=== PATIENT | male | born 1965 | race Caucasian/White ===

== ENCOUNTER 2018-01-01 19:32 | Inpatient (IN) | payer OTHER ==
[2018-01-01] MEDS ORDERED: ACETAMINOPHEN 325 MG TAB PO (21:00)
[2018-01-01] MEDS ORDERED: DOCUSATE SODIUM 100 MG CAP PO (21:00)
[2018-01-01] MEDS ORDERED: NACL 0.9% 3 ML SYG IV (21:00)
[2018-01-01] MEDS ORDERED: BISACODYL (EC) 5 MG TAB PO (21:00)
[2018-01-01] MEDS ORDERED: ALBUTEROL 0.083% (NEB) 2.5 MG/3 ML AMP HHN (21:00)
[2018-01-01] MEDS ORDERED: ONDANSETRON 4 MG INJ IV (21:00)
[2018-01-01 21:48] LABS: ADD MAN DIFF? NO
[2018-01-01 21:53] LABS: WHITE BLOOD COUNT 7.7 10^3/ul (4.8-10.8)
[2018-01-01 21:54] LABS: ABNORMAL IP MESSAGE 1; BASOPHILS % 0.1 % (0.0-2.0); HEMATOCRIT 39.8 % (42.0-52.0); HEMOGLOBIN 12.7 g/dl (14.0-18.0); LYMPHOCYTES # 0.2 10^3/ul (0.8-2.9); LYMPHOCYTES % 2.6 % (15.0-51.0); MEAN CORPUSCULAR HEMOGLOBIN 30.6 pg (29.0-33.0); MEAN CORPUSCULAR HGB CONC 31.9 g/dl (32.0-37.0); MEAN CORPUSCULAR VOLUME 95.9 fl (82.0-101.0); MEAN PLATELET VOLUME 10.7 fl (7.4-10.4); MONOCYTE # 0.2 10^3/ul (0.3-0.9); MONOCYTES % 2.9 % (0.0-11.0); NEUTROPHIL # 7.2 10^3/ul (1.6-7.5); NEUTROPHILS % 94.1 % (39.0-77.0); PLATELET COUNT 181 10^3/UL (140-415); POSITIVE DIFF @See below; RED BLOOD COUNT 4.15 10^6/ul (4.70-6.10); RED CELL DISTRIBUTION WIDTH 14.6 % (11.5-14.5)
[2018-01-01] MEDS: ALBUTEROL/IPRATROPIUM (NEB) 3 ML AMP HHN (21:59)
[2018-01-01 22:04] LABS: HEMOGLOBIN A1C 5.5 % (0-5.9)
[2018-01-01] MEDS: predniSONE 20 MG TAB PO (22:04)
[2018-01-01] MEDS: ENOXAPARIN 40 MG/0.4 ML SYG SC (22:08)
[2018-01-01 22:13] LABS: ALANINE AMINOTRANSFERASE 22 IU/L (13-69); ALBUMIN 4.4 g/dl (3.3-4.9); ALBUMIN/GLOBULIN RATIO 1.41; ALKALINE PHOSPHATASE 69 IU/L (42-121); ANION GAP 9 (5-13); ASPARTATE AMINO TRANSFERASE 27 IU/L (15-46); BILIRUBIN,INDIRECT 0.5 mg/dl (0-1.1); BILIRUBIN,TOTAL 0.5 mg/dl (0.2-1.3); BLOOD UREA NITROGEN 31 mg/dl (7-20); CALCIUM 9.2 mg/dl (8.4-10.2); CARBON DIOXIDE 33 mmol/L (21-31); CHLORIDE 97 mmol/L (97-110); CREATININE 1.37 mg/dl (0.61-1.24); Estimated GFR 54 mL/min (>60); GLUCOSE 185 mg/dl (70-220); MAGNESIUM 2.4 mg/dl (1.7-2.5); POTASSIUM 4.8 mmol/L (3.5-5.1); SODIUM 139 mmol/L (135-144); TOTAL PROTEIN 7.5 g/dl (6.1-8.1)
[2018-01-01 22:42] LABS: THYROID STIMULATING HORMONE 0.358 MIU/L (0.465-4.680)
[2018-01-02] MEDS: THIAMINE 200 MG INJ IM ×2 (01:00→10:34)
[2018-01-02] MEDS ORDERED: LORAZEPAM 2 MG INJ IV (01:00)
[2018-01-02 01:52] LABS: CREATINE KINASE 61 IU/L (23-200)
[2018-01-02 01:58] LABS: ETHANOL < 10.0 mg/dl
[2018-01-02 02:05] LABS: CK INDEX 5.4; CK-MB 3.28 ng/ml (0.0-2.4)
[2018-01-02] MEDS: ALBUTEROL/IPRATROPIUM (NEB) 3 ML AMP HHN ×6 (05:23→20:21)
[2018-01-02 05:57] LABS: ADD MAN DIFF? NO
[2018-01-02 06:01] LABS: ABNORMAL IP MESSAGE 1; BASOPHILS % 0.1 % (0.0-2.0); HEMATOCRIT 40.4 % (42.0-52.0); HEMOGLOBIN 12.6 g/dl (14.0-18.0); LYMPHOCYTES # 0.3 10^3/ul (0.8-2.9); LYMPHOCYTES % 2.7 % (15.0-51.0); MEAN CORPUSCULAR HEMOGLOBIN 30.6 pg (29.0-33.0); MEAN CORPUSCULAR HGB CONC 31.2 g/dl (32.0-37.0); MEAN CORPUSCULAR VOLUME 98.1 fl (82.0-101.0); MEAN PLATELET VOLUME 11.2 fl (7.4-10.4); MONOCYTE # 0.6 10^3/ul (0.3-0.9); MONOCYTES % 5.9 % (0.0-11.0); NEUTROPHILS % 91.1 % (39.0-77.0); PLATELET COUNT 170 10^3/UL (140-415); POSITIVE DIFF @See below; RED BLOOD COUNT 4.12 10^6/ul (4.70-6.10); RED CELL DISTRIBUTION WIDTH 14.7 % (11.5-14.5)
[2018-01-02 06:01] LABS: WHITE BLOOD COUNT 9.9 10^3/ul (4.8-10.8)
[2018-01-02] MEDS: PANTOPRAZOLE (EC) 40 MG TAB PO (06:07)
[2018-01-02 06:30] LABS: ALANINE AMINOTRANSFERASE 11 IU/L (13-69); ALBUMIN 4.2 g/dl (3.3-4.9); ALKALINE PHOSPHATASE 71 IU/L (42-121); ANION GAP 12 (5-13); ASPARTATE AMINO TRANSFERASE 31 IU/L (15-46); BILIRUBIN,INDIRECT 0.3 mg/dl (0-1.1); BILIRUBIN,TOTAL 0.3 mg/dl (0.2-1.3); BLOOD UREA NITROGEN 34 mg/dl (7-20); CALCIUM 9.1 mg/dl (8.4-10.2); CARBON DIOXIDE 29 mmol/L (21-31); CHLORIDE 99 mmol/L (97-110); CREATININE 1.25 mg/dl (0.61-1.24); Estimated GFR > 60 mL/min (>60); GLUCOSE 218 mg/dl (70-220); POTASSIUM 4.8 mmol/L (3.5-5.1); SODIUM 140 mmol/L (135-144); TOTAL PROTEIN 7.2 g/dl (6.1-8.1)
[2018-01-02 06:45] LABS: FREE T4 (FREE THYROXINE) 0.89 ng/dl (0.64-1.79)
[2018-01-02 06:46] LABS: FREE T3 2.35 pg/ml (2.77-5.27)
[2018-01-02] MEDS: METHYLPREDNISOLONE 40 MG INJ IV ×2 (10:33→21:18)
[2018-01-02] MEDS: ENOXAPARIN 40 MG/0.4 ML SYG SC (10:59)
[2018-01-02] MEDS: AZITHROMYCIN 250 MG TAB PO (13:22)
[2018-01-02 16:32] LABS: BARBITURATES Negative (NEGATIVE); BENZODIAZEPINES Negative (NEGATIVE); CANNABINOIDS Negative (NEGATIVE); COCAINE Negative (NEGATIVE); OPIATES Negative (NEGATIVE)
[2018-01-02 16:33] LABS: AMPHETAMINE/METHAMPHETAMINE Positive (NEGATIVE)
[2018-01-03] MEDS: ALBUTEROL/IPRATROPIUM (NEB) 3 ML AMP HHN ×6 (01:31→20:46)
[2018-01-03] MEDS: PANTOPRAZOLE (EC) 40 MG TAB PO (06:32)
[2018-01-03] MEDS: AZITHROMYCIN 250 MG TAB PO (09:34)
[2018-01-03] MEDS: METHYLPREDNISOLONE 40 MG INJ IV ×2 (09:34→21:52)
[2018-01-03] MEDS: ENOXAPARIN 40 MG/0.4 ML SYG SC (09:41)
[2018-01-03] MEDS: THIAMINE 200 MG INJ IM (12:40)
[2018-01-04] MEDS: ALBUTEROL/IPRATROPIUM (NEB) 3 ML AMP HHN ×5 (00:33→16:20)
[2018-01-04] MEDS: PANTOPRAZOLE (EC) 40 MG TAB PO (06:18)
[2018-01-04] MEDS: METHYLPREDNISOLONE 40 MG INJ IV (08:25)
[2018-01-04] MEDS: AZITHROMYCIN 250 MG TAB PO (08:25)
[2018-01-04] MEDS: ENOXAPARIN 40 MG/0.4 ML SYG SC (08:30)
[2018-01-04] MEDS: THIAMINE 200 MG INJ IM (11:52)
== END 2018-01-04 18:45 | disposition home or self-care (01) | DRG 191 ==
LOC: 6WM 19:32
PROVIDERS: Family Medicine
PROC: 3E0F7GC Introduction of Other Therapeutic Substance into Respiratory Tract, Via Natural or Artificial Opening (ICD-10-PCS; principal; 2018-01-01)
DX: J44.1 Chronic obstructive pulmonary disease with (acute) exacerbation (principal); I13.0 Hypertensive heart and chronic kidney disease with heart failure and stage 1 through stage 4 chronic kidney disease, or unspecified chronic kidney disease; I50.42 Chronic combined systolic (congestive) and diastolic (congestive) heart failure; N17.9 Acute kidney failure, unspecified; Z68.41 Body mass index [BMI] 40.0-44.9, adult; N18.9 Chronic kidney disease, unspecified; E66.01 Morbid (severe) obesity due to excess calories; Z59.0 Homelessness; Z72.0 Tobacco use; F10.10 Alcohol abuse, uncomplicated
CPT/HCPCS: 80053; 80307; 82550; 82553; 83036; 83735; 84439; 84443; 84481; 84484; 85025; 93306; 94640; 94664

== ENCOUNTER 2018-01-19 18:12 | Emergency (ER) | payer OTHER ==
[2018-01-19] MEDS: ONDANSETRON (ODT) 4 MG TAB ODT (18:35)
[2018-01-19] MEDS: HYDROCODONE/APAP (10/325) TAB PO (18:35)
[2018-01-19] MEDS: SOD CHLORIDE 0.9% 100 ML (22:51)
[2018-01-19] MEDS: IOHEXOL 300MG/ML 30 ML BTL (22:52)
[2018-01-19] MEDS: SOD CHLORIDE 0.9% 1,000 ML IV (22:54)
[2018-01-19 22:58] LABS: ADD MAN DIFF? NO
[2018-01-19 23:01] LABS: WHITE BLOOD COUNT 6.4 10^3/ul (4.8-10.8)
[2018-01-19 23:01] LABS: BASOPHILS % 0.6 % (0.0-2.0); EOSINOPHILS # 0.1 10^3/ul (0.0-0.5); EOSINOPHILS % 0.9 % (0.0-7.0); HEMATOCRIT 38.3 % (42.0-52.0); HEMOGLOBIN 11.8 g/dl (14.0-18.0); LYMPHOCYTES # 0.7 10^3/ul (0.8-2.9); LYMPHOCYTES % 10.6 % (15.0-51.0); MEAN CORPUSCULAR HEMOGLOBIN 30.4 pg (29.0-33.0); MEAN CORPUSCULAR HGB CONC 30.8 g/dl (32.0-37.0); MEAN CORPUSCULAR VOLUME 98.7 fl (82.0-101.0); MEAN PLATELET VOLUME 10.7 fl (7.4-10.4); MONOCYTE # 0.7 10^3/ul (0.3-0.9); MONOCYTES % 10.6 % (0.0-11.0); NEUTROPHIL # 4.9 10^3/ul (1.6-7.5); NEUTROPHILS % 77.1 % (39.0-77.0); PLATELET COUNT 128 10^3/UL (140-415); RED BLOOD COUNT 3.88 10^6/ul (4.70-6.10); RED CELL DISTRIBUTION WIDTH 14.4 % (11.5-14.5)
[2018-01-19 23:19] LABS: ALANINE AMINOTRANSFERASE 46 IU/L (13-69); ALBUMIN 3.5 g/dl (3.3-4.9); ALBUMIN/GLOBULIN RATIO 1.52; ALKALINE PHOSPHATASE 65 IU/L (42-121); ANION GAP 7 (5-13); ASPARTATE AMINO TRANSFERASE 49 IU/L (15-46); BILIRUBIN,INDIRECT 0.6 mg/dl (0-1.1); BILIRUBIN,TOTAL 0.6 mg/dl (0.2-1.3); BLOOD UREA NITROGEN 24 mg/dl (7-20); CALCIUM 8.5 mg/dl (8.4-10.2); CARBON DIOXIDE 29 mmol/L (21-31); CHLORIDE 107 mmol/L (97-110); CREATININE 0.87 mg/dl (0.61-1.24); Estimated GFR > 60 mL/min (>60); GLUCOSE 107 mg/dl (70-220); LIPASE 69 U/L (23-300); POTASSIUM 4.3 mmol/L (3.5-5.1); SODIUM 143 mmol/L (135-144); TOTAL PROTEIN 5.8 g/dl (6.1-8.1)
== END 2018-01-20 01:59 | disposition home or self-care (01) ==
LOC: E/R 01-20 01:59
DX: S90.411A Abrasion, right great toe, initial encounter (principal); J44.9 Chronic obstructive pulmonary disease, unspecified; I11.0 Hypertensive heart disease with heart failure; I50.9 Heart failure, unspecified; V03.10XA Pedestrian on foot injured in collision with car, pick-up truck or van in traffic accident, initial encounter; Z87.891 Personal history of nicotine dependence
CPT/HCPCS: 73550; 73590; 73630; 74176; 74177; 80053; 83690; 85025; 99285-25

== ENCOUNTER 2018-01-20 02:58 | Emergency (ER) | payer OTHER ==
[2018-01-20] MEDS: HYDROCODONE/APAP (5/325) TAB PO (10:13)
== END 2018-01-20 11:21 | disposition home or self-care (01) ==
LOC: E/R 02:58
DX: R10.9 Unspecified abdominal pain (principal); I11.0 Hypertensive heart disease with heart failure; I50.9 Heart failure, unspecified; J44.9 Chronic obstructive pulmonary disease, unspecified; Z87.891 Personal history of nicotine dependence
CPT/HCPCS: 73562; 74176; 99284-25

== ENCOUNTER 2018-07-13 13:17 | Inpatient (IN) | payer OTHER ==
[2018-07-13] MEDS ORDERED: DOCUSATE SODIUM 100 MG CAP PO (14:30)
[2018-07-13] MEDS ORDERED: ONDANSETRON 4 MG INJ IV (14:30)
[2018-07-13] MEDS ORDERED: MAGNESIUM HYDROXIDE 30ML CUP PO (14:30)
[2018-07-13] MEDS ORDERED: NACL 0.9% 3 ML SYG IV (14:30)
[2018-07-13] MEDS ORDERED: ALBUTEROL 0.083% (NEB) 2.5 MG/3 ML AMP HHN (14:30)
[2018-07-13] MEDS ORDERED: ACETAMINOPHEN 325 MG TAB PO (14:30)
[2018-07-13] MEDS ORDERED: LORAZEPAM 2 MG INJ IV (15:00)
[2018-07-13] MEDS: FUROSEMIDE 40 MG INJ IV (17:08)
[2018-07-13] MEDS: FUROSEMIDE 20 MG TAB PO (17:09)
[2018-07-13] MEDS: FAMOTIDINE 20 MG TAB PO (20:58)
[2018-07-13] MEDS: ATENOLOL 50 MG TAB PO (20:58)
[2018-07-13] MEDS: ALBUTEROL 0.083% (NEB) 2.5 MG/3 ML AMP HHN (21:24)
[2018-07-14] MEDS: FUROSEMIDE 20 MG TAB PO ×2 (06:30→17:34)
[2018-07-14 06:47] LABS: ADD MAN DIFF? NO
[2018-07-14 06:54] LABS: BASOPHILS % 0.2 % (0.0-2.0); HEMATOCRIT 36.5 % (42.0-52.0); HEMOGLOBIN 11.8 g/dl (14.0-18.0); LYMPHOCYTES # 0.6 10^3/ul (0.8-2.9); LYMPHOCYTES % 10.6 % (15.0-51.0); MEAN CORPUSCULAR HEMOGLOBIN 29.7 pg (29.0-33.0); MEAN CORPUSCULAR HGB CONC 32.3 g/dl (32.0-37.0); MEAN CORPUSCULAR VOLUME 91.9 fl (82.0-101.0); MEAN PLATELET VOLUME 11.8 fl (7.4-10.4); MONOCYTE # 0.7 10^3/ul (0.3-0.9); MONOCYTES % 11.6 % (0.0-11.0); NEUTROPHIL # 4.7 10^3/ul (1.6-7.5); NEUTROPHILS % 77.4 % (39.0-77.0); PLATELET COUNT 133 10^3/UL (140-415); POSITIVE DIFF @See below; RED BLOOD COUNT 3.97 10^6/ul (4.70-6.10); RED CELL DISTRIBUTION WIDTH 14.2 % (11.5-14.5)
[2018-07-14 07:11] LABS: HEMOGLOBIN A1C 5.9 % (0-5.9)
[2018-07-14 07:18] LABS: ALANINE AMINOTRANSFERASE 26 IU/L (13-69); ALBUMIN 3.3 g/dl (3.3-4.9); ALBUMIN/GLOBULIN RATIO 0.91; ALKALINE PHOSPHATASE 66 IU/L (42-121); ANION GAP 5 (5-13); ASPARTATE AMINO TRANSFERASE 26 IU/L (15-46); BILIRUBIN,INDIRECT 0.4 mg/dl (0-1.1); BILIRUBIN,TOTAL 0.4 mg/dl (0.2-1.3); BLOOD UREA NITROGEN 35 mg/dl (7-20); CALCIUM 8.8 mg/dl (8.4-10.2); CARBON DIOXIDE 34 mmol/L (21-31); CHLORIDE 102 mmol/L (97-110); CREATININE 0.88 mg/dl (0.61-1.24); Estimated GFR > 60 mL/min (>60); GLUCOSE 156 mg/dl (70-220); MAGNESIUM 1.8 mg/dl (1.7-2.5); POTASSIUM 3.8 mmol/L (3.5-5.1); SODIUM 141 mmol/L (135-144); TOTAL PROTEIN 6.9 g/dl (6.1-8.1)
[2018-07-14] MEDS: ALBUTEROL 0.083% (NEB) 2.5 MG/3 ML AMP HHN ×3 (08:20→21:03)
[2018-07-14] MEDS: ASPIRIN 81 MG TAB PO (09:54)
[2018-07-14] MEDS: TIOTROPIUM 18 MCG CAPSULE INHA DEV INH (09:54)
[2018-07-14] MEDS: FAMOTIDINE 20 MG TAB PO ×2 (09:54→20:50)
[2018-07-14] MEDS: ATENOLOL 50 MG TAB PO ×2 (09:57→20:50)
[2018-07-14] MEDS: ENOXAPARIN 40 MG/0.4 ML SYG SC (10:07)
[2018-07-14] MEDS: FLUTICASONE/VILANTEROL 200-25 INH DEVICE INH (10:10)
[2018-07-15] MEDS: FUROSEMIDE 20 MG TAB PO (06:26)
[2018-07-15 07:31] LABS: ADD MAN DIFF? NO
[2018-07-15 07:34] LABS: WHITE BLOOD COUNT 4.6 10^3/ul (4.8-10.8)
[2018-07-15 07:35] LABS: BASOPHILS % 0.9 % (0.0-2.0); EOSINOPHILS # 0.1 10^3/ul (0.0-0.5); HEMATOCRIT 40.7 % (42.0-52.0); HEMOGLOBIN 12.5 g/dl (14.0-18.0); LYMPHOCYTES # 1.5 10^3/ul (0.8-2.9); LYMPHOCYTES % 31.5 % (15.0-51.0); MEAN CORPUSCULAR HEMOGLOBIN 29.3 pg (29.0-33.0); MEAN CORPUSCULAR HGB CONC 30.7 g/dl (32.0-37.0); MEAN CORPUSCULAR VOLUME 95.3 fl (82.0-101.0); MEAN PLATELET VOLUME 11.7 fl (7.4-10.4); MONOCYTE # 0.7 10^3/ul (0.3-0.9); MONOCYTES % 14.8 % (0.0-11.0); NEUTROPHIL # 2.3 10^3/ul (1.6-7.5); NEUTROPHILS % 50.6 % (39.0-77.0); PLATELET COUNT 171 10^3/UL (140-415); RED BLOOD COUNT 4.27 10^6/ul (4.70-6.10); RED CELL DISTRIBUTION WIDTH 14.5 % (11.5-14.5)
[2018-07-15 07:56] LABS: ALBUMIN 3.8 g/dl (3.3-4.9); ANION GAP 7 (5-13); BLOOD UREA NITROGEN 52 mg/dl (7-20); CALCIUM 8.9 mg/dl (8.4-10.2); CARBON DIOXIDE 34 mmol/L (21-31); CHLORIDE 100 mmol/L (97-110); CREATININE 1.41 mg/dl (0.61-1.24); GLUCOSE 95 mg/dl (70-220); MAGNESIUM 1.7 mg/dl (1.7-2.5); PHOSPHORUS 4.7 mg/dl (2.5-4.9); POTASSIUM 4.3 mmol/L (3.5-5.1); SODIUM 141 mmol/L (135-144)
[2018-07-15] MEDS: ALBUTEROL 0.083% (NEB) 2.5 MG/3 ML AMP HHN ×3 (08:00→19:54)
[2018-07-15] MEDS: FLUTICASONE/VILANTEROL 200-25 INH DEVICE INH ×2 (09:00→14:01)
[2018-07-15] MEDS: ATENOLOL 50 MG TAB PO (09:03)
[2018-07-15] MEDS: FAMOTIDINE 20 MG TAB PO ×2 (09:03→21:16)
[2018-07-15] MEDS: TIOTROPIUM 18 MCG CAPSULE INHA DEV INH (09:03)
[2018-07-15] MEDS: ASPIRIN 81 MG TAB PO (09:03)
[2018-07-15] MEDS: ENOXAPARIN 40 MG/0.4 ML SYG SC (09:09)
[2018-07-16 06:20] LABS: ADD MAN DIFF? NO
[2018-07-16 06:27] LABS: WHITE BLOOD COUNT 3.1 10^3/ul (4.8-10.8)
[2018-07-16 06:27] LABS: EOSINOPHILS # 0.1 10^3/ul (0.0-0.5); EOSINOPHILS % 2.9 % (0.0-7.0); HEMATOCRIT 39.3 % (42.0-52.0); HEMOGLOBIN 12.5 g/dl (14.0-18.0); LYMPHOCYTES # 0.9 10^3/ul (0.8-2.9); LYMPHOCYTES % 28.7 % (15.0-51.0); MEAN CORPUSCULAR HEMOGLOBIN 29.6 pg (29.0-33.0); MEAN CORPUSCULAR HGB CONC 31.8 g/dl (32.0-37.0); MEAN CORPUSCULAR VOLUME 92.9 fl (82.0-101.0); MEAN PLATELET VOLUME 11.1 fl (7.4-10.4); MONOCYTE # 0.5 10^3/ul (0.3-0.9); MONOCYTES % 16.8 % (0.0-11.0); NEUTROPHIL # 1.6 10^3/ul (1.6-7.5); NEUTROPHILS % 50.6 % (39.0-77.0); PLATELET COUNT 170 10^3/UL (140-415); RED BLOOD COUNT 4.23 10^6/ul (4.70-6.10); RED CELL DISTRIBUTION WIDTH 14.5 % (11.5-14.5)
[2018-07-16 06:47] LABS: ALBUMIN 3.4 g/dl (3.3-4.9); ANION GAP 8 (5-13); BLOOD UREA NITROGEN 43 mg/dl (7-20); CALCIUM 8.9 mg/dl (8.4-10.2); CARBON DIOXIDE 31 mmol/L (21-31); CHLORIDE 103 mmol/L (97-110); GLUCOSE 144 mg/dl (70-220); MAGNESIUM 1.9 mg/dl (1.7-2.5); PHOSPHORUS 5.1 mg/dl (2.5-4.9); POTASSIUM 3.9 mmol/L (3.5-5.1); SODIUM 142 mmol/L (135-144)
[2018-07-16] MEDS: ALBUTEROL 0.083% (NEB) 2.5 MG/3 ML AMP HHN ×3 (08:26→20:19)
[2018-07-16] MEDS: FLUTICASONE/VILANTEROL 200-25 INH DEVICE INH (09:50)
[2018-07-16] MEDS: ASPIRIN 81 MG TAB PO (09:50)
[2018-07-16] MEDS: THIAMINE 100 MG TAB PO (09:50)
[2018-07-16] MEDS: FUROSEMIDE 20 MG TAB PO (09:50)
[2018-07-16] MEDS: FOLIC ACID 1 MG TAB PO (09:51)
[2018-07-16] MEDS: ATENOLOL 50 MG TAB PO (09:51)
[2018-07-16] MEDS: TIOTROPIUM 18 MCG CAPSULE INHA DEV INH (09:51)
[2018-07-16] MEDS: FAMOTIDINE 20 MG TAB PO ×2 (09:51→20:48)
[2018-07-16] MEDS: ENOXAPARIN 40 MG/0.4 ML SYG SC (09:54)
[2018-07-17 06:41] LABS: ADD MAN DIFF? NO
[2018-07-17 06:44] LABS: WHITE BLOOD COUNT 2.7 10^3/ul (4.8-10.8)
[2018-07-17 06:44] LABS: BASOPHILS % 0.7 % (0.0-2.0); EOSINOPHILS # 0.1 10^3/ul (0.0-0.5); EOSINOPHILS % 2.6 % (0.0-7.0); HEMATOCRIT 38.4 % (42.0-52.0); HEMOGLOBIN 12.2 g/dl (14.0-18.0); LYMPHOCYTES # 0.7 10^3/ul (0.8-2.9); LYMPHOCYTES % 27.1 % (15.0-51.0); MEAN CORPUSCULAR HEMOGLOBIN 29.8 pg (29.0-33.0); MEAN CORPUSCULAR HGB CONC 31.8 g/dl (32.0-37.0); MEAN CORPUSCULAR VOLUME 93.7 fl (82.0-101.0); MEAN PLATELET VOLUME 10.9 fl (7.4-10.4); MONOCYTE # 0.5 10^3/ul (0.3-0.9); MONOCYTES % 18.7 % (0.0-11.0); NEUTROPHIL # 1.4 10^3/ul (1.6-7.5); NEUTROPHILS % 50.5 % (39.0-77.0); PLATELET COUNT 168 10^3/UL (140-415); RED CELL DISTRIBUTION WIDTH 14.5 % (11.5-14.5)
[2018-07-17 07:15] LABS: ALBUMIN 3.3 g/dl (3.3-4.9); ANION GAP 4 (5-13); BLOOD UREA NITROGEN 40 mg/dl (7-20); CARBON DIOXIDE 35 mmol/L (21-31); CHLORIDE 100 mmol/L (97-110); CREATININE 1.17 mg/dl (0.61-1.24); GLUCOSE 109 mg/dl (70-220); POTASSIUM 4.2 mmol/L (3.5-5.1); SODIUM 139 mmol/L (135-144)
[2018-07-17] MEDS: ALBUTEROL 0.083% (NEB) 2.5 MG/3 ML AMP HHN (07:45)
[2018-07-17] MEDS: FOLIC ACID 1 MG TAB PO (08:09)
[2018-07-17] MEDS: ASPIRIN 81 MG TAB PO (08:09)
[2018-07-17] MEDS: THIAMINE 100 MG TAB PO (08:09)
[2018-07-17] MEDS: FAMOTIDINE 20 MG TAB PO (08:09)
[2018-07-17] MEDS: ATENOLOL 50 MG TAB PO (08:09)
[2018-07-17] MEDS: FUROSEMIDE 20 MG TAB PO (08:09)
[2018-07-17] MEDS: ENOXAPARIN 40 MG/0.4 ML SYG SC (08:44)
[2018-07-17] MEDS: FLUTICASONE/VILANTEROL 200-25 INH DEVICE INH (09:00)
[2018-07-17] MEDS: TIOTROPIUM 18 MCG CAPSULE INHA DEV INH (09:00)
== END 2018-07-17 12:50 | disposition home or self-care (01) | DRG 292 ==
LOC: TEL 07-14 01:22
DX: I11.0 Hypertensive heart disease with heart failure (principal); N17.9 Acute kidney failure, unspecified; I50.43 Acute on chronic combined systolic (congestive) and diastolic (congestive) heart failure; J44.9 Chronic obstructive pulmonary disease, unspecified; F10.10 Alcohol abuse, uncomplicated; E66.9 Obesity, unspecified; Z68.30 Body mass index [BMI] 30.0-30.9, adult; Z59.0 Homelessness
CPT/HCPCS: 80053; 80069; 83036; 83735; 85025; 93306; 94640; 94664; 97110; 97116; 97162; 97165

== ENCOUNTER 2018-10-10 22:22 | Emergency (ER) | payer OTHER ==
[2018-10-10] MEDS: FUROSEMIDE 20 MG TAB PO (23:20)
== END 2018-10-10 23:50 | disposition home or self-care (01) ==
LOC: E/R 23:50
DX: M79.89 Other specified soft tissue disorders (principal); J44.9 Chronic obstructive pulmonary disease, unspecified; I11.0 Hypertensive heart disease with heart failure; I50.9 Heart failure, unspecified; E66.9 Obesity, unspecified; R40.2142 Coma scale, eyes open, spontaneous, at arrival to emergency department; R40.2362 Coma scale, best motor response, obeys commands, at arrival to emergency department; R40.2252 Coma scale, best verbal response, oriented, at arrival to emergency department; Z79.82 Long term (current) use of aspirin; Z87.891 Personal history of nicotine dependence; Z68.41 Body mass index [BMI] 40.0-44.9, adult
CPT/HCPCS: 93005; 99283-25; Z7502